=== PATIENT | female | born 1940 | race Caucasian/White ===

== ENCOUNTER → 2018-04-26 08:09 | Outpatient (CLI) | payer MEDICARE, OTHER, SELFPAY ==
[2018-04-26 10:03] LABS: Basophils Percent Auto 5.1 % (0-2); Hematocrit 39.3 % (36-46); Hemoglobin 13.6 g/dL (12.0-16.0); Mean Corpuscular HGB Conc 34.7 % (30-36); Mean Corpuscular Hemoglobin 34.8 PG (26-34); Mean Corpuscular Volume 100.5 fL (80-100); Monocytes Percent Auto 5.4 % (3-14); Neutrophils Absolute Auto 1700 /uL (3000-5900); Neutrophils Percent Auto 38.5 % (50-75); Platelet Count 251 X10^3/uL (150-400); Red Blood Cell Count 3.91 X10^6/uL (4.0-5.2); White Blood Cell Count 4.3 X10^3/uL (4.5-11.0)
[2018-04-26 10:11] LABS: Add Manual Diff / Slide Review SLIDE REVIEW
[2018-04-26 10:21] LABS: Alanine Aminotransferase 29 IU/L (9-52); Albumin 4.4 g/dL (3.5-5.0); Albumin Globulin Ratio 1.6 (1.0-2.8); Alkaline Phosphatase 52 U/L (38-126); Aspartate Aminotransferase 31 IU/L (14-36); BUN Creatinine Ratio 19.2 (6-22); Bilirubin Total 1.5 mg/dL (0.2-1.3); Blood Urea Nitrogen 23 mg/dL (7-17); Calcium 9.9 mg/dL (8.4-10.2); Carbon Dioxide 32 mmol/L (22-32); Chloride 101 mmol/L (98-107); Cholesterol 207 mg/dL (140-199); Estimated Glomerular Filt Rate 43.7 mL/min (>60); Globulin 2.7 g/dL (1.7-4.1); Glucose 113 mg/dL (80-110); HDL Cholesterol 53 mg/dL (40-60); HEMOLYSIS < 15 (0-50); LDL Cholesterol Calculated 128 mg/dL (<100); Potassium 4.5 mmol/L (3.4-5.1); Sodium 142 mmol/L (137-145); Total Protein 7.1 g/dL (6.3-8.2); Triglycerides 129 mg/dL (35-150)
[2018-04-26 10:38] LABS: Free T4, Direct Thyroxine 1.66 ng/dL (0.78-2.19)
[2018-04-26 10:52] LABS: Thyroid Stimulating Hormone 1.44 uIU/mL (0.47-4.68)
== END ==
PROVIDERS: PCP Family Medicine; Visit Provider Family Medicine
DX: I10 Essential (primary) hypertension (principal); E03.9 Hypothyroidism, unspecified; E78.5 Hyperlipidemia, unspecified
CPT/HCPCS: 36415; 80053; 80061; 84439; 84443; 84481; 85025

== ENCOUNTER → 2018-05-02 10:41 | Outpatient (CLI) | payer MEDICARE, OTHER, SELFPAY ==
[2018-05-02 11:46] LABS: Alanine Aminotransferase 37 IU/L (9-52); Albumin 4.5 g/dL (3.5-5.0); Albumin Globulin Ratio 1.6 (1.0-2.8); Alkaline Phosphatase 55 U/L (38-126); Aspartate Aminotransferase 39 IU/L (14-36); Bilirubin Total 1.5 mg/dL (0.2-1.3); Blood Urea Nitrogen 18 mg/dL (7-17); Carbon Dioxide 35 mmol/L (22-32); Chloride 101 mmol/L (98-107); Cholesterol 198 mg/dL (140-199); Estimated Glomerular Filt Rate 53.9 mL/min (>60); Globulin 2.9 g/dL (1.7-4.1); Glucose 98 mg/dL (80-110); HDL Cholesterol 52 mg/dL (40-60); HEMOLYSIS < 15 (0-50); LDL Cholesterol Calculated 105 mg/dL (<100); Potassium 4.3 mmol/L (3.4-5.1); Sodium 142 mmol/L (137-145); Total Protein 7.4 g/dL (6.3-8.2); Triglycerides 207 mg/dL (35-150)
[2018-05-02 12:51] LABS: Folate 11.5 ng/mL (2.76-20.0); Vitamin B12 703 pg/mL (239-931)
[2018-05-02 14:44] LABS: Hematocrit 38.4 % (36-46); Hemoglobin 13.4 g/dL (12.0-16.0); Mean Corpuscular HGB Conc 34.9 % (30-36); Mean Corpuscular Hemoglobin 34.9 PG (26-34); Mean Corpuscular Volume 99.9 fL (80-100); Platelet Count 259 X10^3/uL (150-400); Red Blood Cell Count 3.84 X10^6/uL (4.0-5.2); Red Cell Distribution Width 14.7 % (11.6-14.8); White Blood Cell Count 5.1 X10^3/uL (4.5-11.0)
[2018-05-02 14:46] LABS: Add Manual Diff / Slide Review YES
[2018-05-02 15:17] LABS: Thyroid Stimulating Hormone 1.31 uIU/mL (0.47-4.68)
[2018-05-02 15:22] LABS: Neutrophils Absolute Manual 2193 /uL (3000-5900); RBC Morphology Normal Morphology; Total Cells Counted 100
== END ==
PROVIDERS: Family Provider Family Medicine; PCP Family Medicine; Visit Provider Family Medicine
DX: I10 Essential (primary) hypertension (principal); N28.9 Disorder of kidney and ureter, unspecified; E03.9 Hypothyroidism, unspecified; R53.83 Other fatigue
CPT/HCPCS: 36415; 80053; 80061; 82607; 82746; 84443; 85025

== ENCOUNTER → 2019-02-07 08:00 | Outpatient (CLI) | payer MEDICARE, OTHER, SELFPAY ==
[2019-02-07 09:15] LABS: Add Manual Diff / Slide Review NO; Basophils Absolute Auto 200 /uL (0-100); Basophils Percent Auto 4.4 % (0-2); Eosinophils Absolute Auto 100 /uL (0-450); Eosinophils Percent Auto 2.7 % (2-4); Hematocrit 39.5 % (36-46); Hemoglobin 13.5 g/dL (12.0-16.0); Lymphocytes Absolute Auto 1500 /uL (1100-4500); Lymphocytes Percent Auto 33.8 % (25-40); Mean Corpuscular HGB Conc 34.1 % (30-36); Mean Corpuscular Hemoglobin 33.3 PG (26-34); Mean Corpuscular Volume 97.5 fL (80-100); Monocytes Absolute Auto 300 /uL (0-900); Monocytes Percent Auto 5.9 % (3-14); Neutrophils Absolute Auto 2300 /uL (1500-7000); Neutrophils Percent Auto 53.2 % (50-75); Platelet Count 265 X10^3/uL (150-400); Red Blood Cell Count 4.05 X10^6/uL (4.0-5.2); Red Cell Distribution Width 14.9 % (11.6-14.8); White Blood Cell Count 4.4 X10^3/uL (4.5-11.0)
[2019-02-07 09:51] LABS: Alanine Aminotransferase 23 IU/L (9-52); Albumin 4.5 g/dL (3.5-5.0); Albumin Globulin Ratio 1.5 (1.0-2.8); Alkaline Phosphatase 69 U/L (38-126); Aspartate Aminotransferase 27 IU/L (14-36); Bilirubin Total 1.3 mg/dL (0.2-1.3); Blood Urea Nitrogen 22 mg/dL (7-17); Calcium 10.1 mg/dL (8.4-10.2); Carbon Dioxide 31 mmol/L (22-32); Chloride 101 mmol/L (98-107); Cholesterol 228 mg/dL (140-199); Estimated Glomerular Filt Rate 53.8 mL/min (>60); Glucose 126 mg/dL (80-110); HDL Cholesterol 53 mg/dL (40-60); HEMOLYSIS < 15 (0-50); LDL Cholesterol Calculated 143 mg/dL (<100); Potassium 4.2 mmol/L (3.4-5.1); Sodium 141 mmol/L (137-145); Total Protein 7.5 g/dL (6.3-8.2); Triglycerides 159 mg/dL (35-150)
[2019-02-07 10:25] LABS: Thyroid Stimulating Hormone 1.36 uIU/mL (0.47-4.68)
== END ==
PROVIDERS: PCP Family Medicine; Visit Provider Family Medicine
DX: E03.9 Hypothyroidism, unspecified (principal); I10 Essential (primary) hypertension; N28.9 Disorder of kidney and ureter, unspecified; R53.83 Other fatigue; Z51.81 Encounter for therapeutic drug level monitoring
CPT/HCPCS: 36415; 80053; 80061; 84443; 85025

== ENCOUNTER → 2019-06-15 09:07 | Outpatient (CLI) | payer MEDICARE, OTHER, SELFPAY ==
[2019-06-15 09:55] LABS: Alanine Aminotransferase 22 IU/L (9-52); Albumin 4.3 g/dL (3.5-5.0); Albumin Globulin Ratio 1.4 (1.0-2.8); Alkaline Phosphatase 84 U/L (38-126); Aspartate Aminotransferase 29 IU/L (14-36); BUN Creatinine Ratio 21.1 (6-22); Bilirubin Total 1.1 mg/dL (0.2-1.3); Blood Urea Nitrogen 19 mg/dL (7-17); Calcium 10.5 mg/dL (8.4-10.2); Carbon Dioxide 32 mmol/L (22-32); Chloride 100 mmol/L (98-107); Cholesterol 179 mg/dL (140-199); Estimated Glomerular Filt Rate > 60.0 mL/min (>60); Glucose 117 mg/dL (80-110); HDL Cholesterol 47 mg/dL (40-60); HEMOLYSIS < 15 (0-50); LDL Cholesterol Calculated 107 mg/dL (<100); Potassium 4.3 mmol/L (3.4-5.1); Sodium 141 mmol/L (137-145); Total Protein 7.3 g/dL (6.3-8.2); Triglycerides 126 mg/dL (35-150)
[2019-06-15 10:28] LABS: Free T3, Triiodothyronine Free 2.69 pg/mL (2.77-5.27)
[2019-06-15 10:41] LABS: Thyroid Stimulating Hormone 1.52 uIU/mL (0.47-4.68)
== END ==
PROVIDERS: PCP Family Medicine; Visit Provider Family Medicine
DX: E03.9 Hypothyroidism, unspecified (principal); E78.5 Hyperlipidemia, unspecified; R73.9 Hyperglycemia, unspecified
CPT/HCPCS: 36415; 80053; 80061; 84439; 84443; 84481

== ENCOUNTER → 2019-08-10 07:39 | Outpatient (CLI) | payer MEDICARE, OTHER, SELFPAY ==
--- NOTE | 2019-08-10 07:40 | DI.MG.S_ITS ---
BILATERAL DIGITAL SCREENING MAMMOGRAM 3D/2D WITH CAD: 08/10/2019 CLINICAL: Routine screening. Family history of breast cancer. Comparison is made to exams dated: 04/19/2014 mammogram, 03/24/2013 mammogram, and 01/18/2012 mammogram - [facility]. There are scattered fibroglandular elements in both breasts. Current study was also evaluated with a Computer Aided Detection (CAD) system. There are benign calcifications in both breasts. No significant masses, calcifications, or other findings are seen in either breast. There has been no significant interval change. IMPRESSION: There is no mammographic evidence of malignancy. A 1 year screening mammogram is recommended. This exam was interpreted at Station ID: [id number]. NOTE: For mammograms, a report in lay terms will be sent to the patient. Approximately 15% of breast malignancies will not be visualized mammographically. In the management of a palpable breast mass, a negative mammogram must not discourage biopsy of a clinically suspicious lesion. Electronically Signed By: Fermin bauer/ervin:08/10/2019 09:41:11 letter sent: Normal Exam ACR BI-RADS Category 2: Benign Finding(s) 3342F
== END ==
PROVIDERS: PCP Family Medicine; Visit Provider Family Medicine
DX: Z12.31 Encounter for screening mammogram for malignant neoplasm of breast (principal); Z80.3 Family history of malignant neoplasm of breast
CPT/HCPCS: 77063; 77067

== ENCOUNTER → 2019-12-04 07:49 | Outpatient (CLI) | payer MEDICARE, OTHER, SELFPAY ==
[2019-12-04 08:25] LABS: Hemoglobin A1C% w Est Avg Glu 5.6 % (4.0-6.0)
[2019-12-04 08:35] LABS: Alanine Aminotransferase 24 IU/L (<35); Albumin 4.6 g/dL (3.5-5.0); Albumin Globulin Ratio 1.5 (1.0-2.8); Alkaline Phosphatase 56 U/L (38-126); Aspartate Aminotransferase 32 IU/L (14-36); Blood Urea Nitrogen 18 mg/dL (7-17); Carbon Dioxide 33 mmol/L (22-32); Chloride 103 mmol/L (98-107); Cholesterol 203 mg/dL (140-199); Estimated Glomerular Filt Rate > 60.0 mL/min (>60); Glucose 125 mg/dL (80-110); HDL Cholesterol 60 mg/dL (40-60); HEMOLYSIS < 15 (0-50); LDL Cholesterol Calculated 115 mg/dL (<100); Potassium 4.2 mmol/L (3.4-5.1); Sodium 144 mmol/L (137-145); Total Protein 7.6 g/dL (6.3-8.2); Triglycerides 142 mg/dL (35-150)
[2019-12-04 09:01] LABS: Free T3, Triiodothyronine Free 2.51 pg/mL (2.77-5.27); Free T4, Direct Thyroxine 1.52 ng/dL (0.78-2.19)
[2019-12-04 09:15] LABS: Thyroid Stimulating Hormone 2.45 uIU/mL (0.47-4.68)
== END ==
PROVIDERS: PCP Nurse Practitioner; Referring Provider Family Medicine; Visit Provider Family Medicine
DX: R73.9 Hyperglycemia, unspecified (principal); E03.9 Hypothyroidism, unspecified; G25.0 Essential tremor; I10 Essential (primary) hypertension; E78.5 Hyperlipidemia, unspecified
CPT/HCPCS: 36415; 80053; 80061; 83036; 84439; 84443; 84481

== ENCOUNTER → 2020-04-09 09:48 | Outpatient (CLI) | payer MEDICARE, OTHER, SELFPAY ==
[2020-04-10 14:36] LABS: Fecal Immunochemical Test Negative (Negative)
== END ==
PROVIDERS: PCP Nurse Practitioner; Referring Provider Nurse Practitioner; Visit Provider Nurse Practitioner
DX: Z12.11 Encounter for screening for malignant neoplasm of colon (principal)
CPT/HCPCS: 82274

== ENCOUNTER → 2020-05-20 08:26 | Outpatient (CLI) | payer MEDICARE, OTHER, SELFPAY ==
[2020-05-20 09:30] LABS: Cholesterol 171 mg/dL (140-199); HDL Cholesterol 50 mg/dL (40-60); LDL Cholesterol Calculated 94 mg/dL (<100); Triglycerides 135 mg/dL (35-150)
== END ==
PROVIDERS: PCP Nurse Practitioner; Referring Provider Nurse Practitioner; Visit Provider Nurse Practitioner
DX: E78.5 Hyperlipidemia, unspecified (principal); I10 Essential (primary) hypertension
CPT/HCPCS: 36415; 80061

== ENCOUNTER → 2020-08-12 10:26 | Outpatient (CLI) | payer MEDICARE, OTHER, SELFPAY ==
--- NOTE | 2020-08-12 | DI.MG.S_ITS ---
BILATERAL DIGITAL SCREENING MAMMOGRAM 3D/2D WITH CAD: 08/12/2020 CLINICAL: Routine screening. Family history of breast cancer. Comparison is made to exams dated: 08/10/2019 mammogram and 04/19/2014 mammogram - [facility]. There are scattered fibroglandular elements in both breasts. Current study was also evaluated with a Computer Aided Detection (CAD) system. There are benign calcifications in both breasts. No significant masses, calcifications, or other findings are seen in either breast. There has been no significant interval change. IMPRESSION: BENIGN There is no mammographic evidence of malignancy. A 1 year screening mammogram is recommended. This exam was interpreted at Station ID: [id number]. NOTE: For mammograms, a report in lay terms will be sent to the patient. Approximately 15% of breast malignancies will not be visualized mammographically. In the management of a palpable breast mass, a negative mammogram must not discourage biopsy of a clinically suspicious lesion. Electronically Signed By: Milton al/ervin:08/12/2020 11:26:52 letter sent: Normal Exam ACR BI-RADS Category 2: Benign Finding(s) 3342F
== END ==
PROVIDERS: PCP Nurse Practitioner; Referring Provider Nurse Practitioner; Visit Provider Nurse Practitioner
DX: Z12.31 Encounter for screening mammogram for malignant neoplasm of breast (principal); Z80.3 Family history of malignant neoplasm of breast
CPT/HCPCS: 77063; 77067

== ENCOUNTER → 2020-12-25 08:58 | Outpatient (CLI) | payer MEDICARE, OTHER, SELFPAY ==
[2020-12-25 10:29] LABS: Alanine Aminotransferase 21 IU/L (<35); Albumin 4.3 g/dL (3.5-5.0); Albumin Globulin Ratio 1.7 (1.0-2.8); Alkaline Phosphatase 67 U/L (38-126); Aspartate Aminotransferase 28 IU/L (14-36); BUN Creatinine Ratio 19.4 (6-22); Blood Urea Nitrogen 18 mg/dL (7-17); Calcium 10.1 mg/dL (8.4-10.2); Carbon Dioxide 33 mmol/L (22-32); Chloride 100 mmol/L (98-107); Estimated Glomerular Filt Rate 58.3 mL/min (>60); Globulin 2.5 g/dL (1.7-4.1); Glucose 129 mg/dL (80-110); HEMOLYSIS < 15 (0-50); Potassium 3.9 mmol/L (3.4-5.1); Sodium 140 mmol/L (137-145); Total Protein 6.8 g/dL (6.3-8.2)
[2020-12-25 10:47] LABS: Creatinine Urine Random 96.1 mg/dL
[2020-12-25 10:51] LABS: Microalbumi Creatinin Ratio Ur 32.2 ug/mg CR (<30); Microalbumin Urine Random 3.1 mg/dL (0-1.6)
[2020-12-25 10:55] LABS: Thyroid Stimulating Hormone 0.856 uIU/mL (0.47-4.68)
== END ==
PROVIDERS: PCP Nurse Practitioner; Referring Provider Nurse Practitioner; Visit Provider Nurse Practitioner
DX: E03.9 Hypothyroidism, unspecified (principal); I10 Essential (primary) hypertension; R73.9 Hyperglycemia, unspecified
CPT/HCPCS: 36415; 80053; 82043; 82570; 84443

== ENCOUNTER 2021-01-15 14:00 | Outpatient (RCR) | payer MEDICARE, OTHER, SELFPAY ==
--- NOTE | 2021-01-15 15:43 | OT.OP.EVAL ---
Visit Care Team Role Provider Type YENNY Faith Attending Provider Advanced International Trade Compliance Manager Primary Care Provider Referring Provider Specialty: Family Practice Address: [address] [place] [address], [address] Email: [email or web address] Occupational Therapy Initial Evaluation OT Outpatient Adult Evaluation Start: 01/15/21 15:23 Freq: Status: Active Protocol: Document 01/15/21 15:24 AMS (Rec: 01/15/21 15:42 AMS [id number]) General Information Visit Start Time 14:30 Visit Stop Time 15:00 Total Visit Minutes 30 Visit Number 10/13 Plan of Care Dates 01/15/21-01/22/21 Insurance Information Medicare Treatment Setting Outpatient Care Note Type Initial Evaluation Referring Physician Tisha Garces MD Reason for Referral tremors Assessment/Plan Treatment Assessment Patient is a 81 year-old right hand dominant female referred to outpatient OT services by primary care physician, Tisha Garces MD, secondary to benign essential tremors. PMH: significant for arthritis ( including arthritis of the left hand); back pain; blood pressure; dizziness; headaches ; shingles; sugery; thyroid disorder; vision problems. Patient reported desire to pursue alternative to medication secondary to side effects; she also indicated that her doctor is considering referring her to a neurologist. Patient reported the presence of tremors for some time in her life and that she has switched to left handedness with certain activities, e.g., application of make-up, d/t tremor severity R > L. Patient stated that L UE tremors have been increasing and subsequently making self-feeding and meal preparation more difficult. Ekaterina reported no significant changes with wearing braces. Education was completed re: proximal stabilization to support motor planning/self- feeding; practiced in treatment session and patient identified difference w/ utilizing strategy R and L. Trialed use of wrist weights with no observable change in abilities; recommended considering use of weighted gloves and/or weighted silverware to support abilities. Discussed potential use of plates/bowls with lips to support transferring of food from plated surface to utensil. Basic education was completed in re: energy conservation as well. Based on feedback from Ekaterina, recommend d/c from outpatient OT services at this time. Contact information was provided so that Ekaterina could contact this therapist if questions arise in near future . Patient Recommendations Discharge from Occupational Therapy
== END 2021-01-16 13:45 ==
LOC: OT 14:00
PROVIDERS: PCP Nurse Practitioner; Referring Provider Nurse Practitioner; Visit Provider Nurse Practitioner
DX: G25.0 Essential tremor (principal)
CPT/HCPCS: 97165

== ENCOUNTER → 2021-08-14 09:43 | Outpatient (CLI) | payer MEDICARE, OTHER, SELFPAY ==
--- NOTE | 2021-08-14 09:44 | DI.MG.S_ITS ---
BILATERAL DIGITAL SCREENING MAMMOGRAM 3D/2D WITH CAD: 08/14/2021 CLINICAL: Routine screening. Family history of breast cancer. Comparison is made to exams dated: 08/12/2020 mammogram, 08/10/2019 mammogram, and 04/19/2014 mammogram - [facility]. There are scattered fibroglandular elements in both breasts. Current study was also evaluated with a Computer Aided Detection (CAD) system. There are benign calcifications in both breasts. No significant masses, calcifications, or other findings are seen in either breast. There has been no significant interval change. IMPRESSION: BENIGN There is no mammographic evidence of malignancy. A 1 year screening mammogram is recommended. This exam was interpreted at Station ID: [id number]. NOTE: For mammograms, a report in lay terms will be sent to the patient. Approximately 15% of breast malignancies will not be visualized mammographically. In the management of a palpable breast mass, a negative mammogram must not discourage biopsy of a clinically suspicious lesion. Electronically Signed By: Jason Ring M.D., jr/ervin:08/14/2021 15:31:22 letter sent: Normal Exam ACR BI-RADS Category 2: Benign Finding(s) 3342F
== END ==
PROVIDERS: PCP Nurse Practitioner; Referring Provider Nurse Practitioner; Visit Provider Nurse Practitioner
DX: Z12.31 Encounter for screening mammogram for malignant neoplasm of breast (principal); Z80.3 Family history of malignant neoplasm of breast
CPT/HCPCS: 77063; 77067

== ENCOUNTER → 2022-04-07 08:06 | Outpatient (CLI) | payer MEDICARE, OTHER, SELFPAY ==
[2022-04-07 09:52] LABS: Alanine Aminotransferase 31 IU/L (<35); Albumin 4.6 g/dL (3.5-5.0); Albumin Globulin Ratio 1.9 (1.0-2.8); Alkaline Phosphatase 68 U/L (38-126); Aspartate Aminotransferase 38 IU/L (14-36); BUN Creatinine Ratio 21.8 (6-22); Bilirubin Total 1.4 mg/dL (0.2-1.3); Blood Urea Nitrogen 19 mg/dL (7-17); Calcium 9.8 mg/dL (8.4-10.2); Carbon Dioxide 31 mmol/L (22-32); Chloride 100 mmol/L (98-107); Cholesterol 177 mg/dL (140-199); Estimated Glomerular Filt Rate > 60 mL/min (>60); Globulin 2.4 g/dL (1.7-4.1); Glucose 137 mg/dL (80-110); HDL Cholesterol 54 mg/dL (40-60); HEMOLYSIS < 15 (0-50); LDL Cholesterol Calculated 92 mg/dL (<100); Potassium 4.4 mmol/L (3.4-5.1); Sodium 139 mmol/L (137-145); Triglycerides 153 mg/dL (35-150)
[2022-04-07 10:01] LABS: Microalbumi Creatinin Ratio Ur 43.6 ug/mg CR (<30); Microalbumin Urine Random 3.1 mg/dL (0-1.6)
[2022-04-07 10:25] LABS: Thyroid Stimulating Hormone 0.441 uIU/mL (0.47-4.68)
== END ==
PROVIDERS: PCP Nurse Practitioner; Referring Provider Nurse Practitioner; Visit Provider Nurse Practitioner
DX: E03.9 Hypothyroidism, unspecified (principal); E78.2 Mixed hyperlipidemia; I10 Essential (primary) hypertension; R73.9 Hyperglycemia, unspecified; Z79.899 Other long term (current) drug therapy
CPT/HCPCS: 36415; 80053; 80061; 82043; 82570; 84443

== ENCOUNTER → 2022-07-11 09:00 | Outpatient (CLI) | payer MEDICARE, OTHER, SELFPAY ==
[2022-07-11 10:15] LABS: Alanine Aminotransferase 25 IU/L (<35); Albumin 4.3 g/dL (3.5-5.0); Albumin Globulin Ratio 1.5 (1.0-2.8); Alkaline Phosphatase 67 U/L (38-126); Aspartate Aminotransferase 32 IU/L (14-36); BUN Creatinine Ratio 17.9 (6-22); Bilirubin Total 1.3 mg/dL (0.2-1.3); Blood Urea Nitrogen 17 mg/dL (7-17); Calcium 9.8 mg/dL (8.4-10.2); Carbon Dioxide 31 mmol/L (22-32); Chloride 99 mmol/L (98-107); Estimated Glomerular Filt Rate > 60 mL/min (>60); Globulin 2.9 g/dL (1.7-4.1); Glucose 147 mg/dL (80-110); HEMOLYSIS < 15 (0-50); Potassium 3.7 mmol/L (3.4-5.1); Sodium 142 mmol/L (137-145); Total Protein 7.2 g/dL (6.3-8.2)
[2022-07-11 10:47] LABS: Thyroid Stimulating Hormone 4.99 uIU/mL (0.47-4.68)
== END ==
PROVIDERS: PCP Nurse Practitioner; Referring Provider Nurse Practitioner; Visit Provider Nurse Practitioner
DX: R73.9 Hyperglycemia, unspecified (principal); I10 Essential (primary) hypertension; R79.9 Abnormal finding of blood chemistry, unspecified; E03.9 Hypothyroidism, unspecified; R79.89 Other specified abnormal findings of blood chemistry
CPT/HCPCS: 36415; 80053; 83036; 84443

== ENCOUNTER → 2022-08-17 12:11 | Outpatient (CLI) | payer MEDICARE, OTHER, SELFPAY ==
--- NOTE | 2022-08-17 | DI.MG.S_ITS ---
BILATERAL DIGITAL SCREENING MAMMOGRAM 3D/2D WITH CAD: 08/17/2022 CLINICAL: Routine screening. Family history of breast cancer. Comparison is made to exams dated: 08/14/2021 mammogram, 08/12/2020 mammogram, 08/10/2019 mammogram, and 04/19/2014 mammogram - [facility]. There are scattered areas of fibroglandular density in both breasts (category b / 25%-50% glandular tissue). Current study was also evaluated with a Computer Aided Detection (CAD) system. There are benign calcifications in both breasts. There also are benign post operative findings in the left breast. No significant masses, calcifications, or other findings are seen in either breast. There has been no significant interval change. IMPRESSION: BENIGN There is no mammographic evidence of malignancy. A 1 year screening mammogram is recommended. Based on the Tyrer Cuzick model (a risk assessment model) the patient's lifetime risk is 1.1% and her 10 year risk is 0.0%. According to the ACR, ACS, and NCCN guidelines, an annual breast MRI exam along with mammogram is recommended if the patient's lifetime risk is 20% or greater. This exam was interpreted at Station ID: [id number]. NOTE: For mammograms, a report in lay terms will be sent to the patient. Approximately 15% of breast malignancies will not be visualized mammographically. In the management of a palpable breast mass, a negative mammogram must not discourage biopsy of a clinically suspicious lesion. Electronically Signed By: Michele maynard/ervin:08/17/2022 16:49:11 letter sent: Normal Exam ACR BI-RADS Category 2: Benign Finding(s) 3342F
== END ==
PROVIDERS: PCP Nurse Practitioner; Referring Provider Nurse Practitioner; Visit Provider Nurse Practitioner
DX: Z12.31 Encounter for screening mammogram for malignant neoplasm of breast (principal); Z80.3 Family history of malignant neoplasm of breast
CPT/HCPCS: 77063; 77067

== ENCOUNTER → 2023-01-07 06:31 | Outpatient (CLI) | payer MEDICARE, OTHER, SELFPAY ==
[2023-01-07 10:23] LABS: Alanine Aminotransferase 21 IU/L (<35); Albumin 3.9 g/dL (3.5-5.0); Albumin Globulin Ratio 1.6 (1.0-2.8); Alkaline Phosphatase 62 U/L (38-126); Aspartate Aminotransferase 25 IU/L (14-36); BUN Creatinine Ratio 21.8 (6-22); Bilirubin Total 1.7 mg/dL (0.2-1.3); Blood Urea Nitrogen 24 mg/dL (7-17); Calcium 9.3 mg/dL (8.4-10.2); Carbon Dioxide 31 mmol/L (22-32); Chloride 96 mmol/L (98-107); Estimated Glomerular Filt Rate 50 mL/min (>60); Globulin 2.4 g/dL (1.7-4.1); Glucose 139 mg/dL (80-110); HEMOLYSIS < 15 (0-50); Potassium 3.6 mmol/L (3.4-5.1); Sodium 137 mmol/L (137-145); Total Protein 6.3 g/dL (6.3-8.2)
[2023-01-08 06:04] LABS: x Labcorp Estim. Avg Glu (eAG) 128 mg/dL (.); x Labcorp Hemoglobin A1c 6.1 % (4.8-5.6)
== END ==
PROVIDERS: PCP Nurse Practitioner; Referring Provider Nurse Practitioner; Visit Provider Nurse Practitioner
DX: R73.03 Prediabetes; I10 Essential (primary) hypertension; Z79.899 Other long term (current) drug therapy
CPT/HCPCS: 36415; 80053; 83036

== ENCOUNTER → 2023-01-22 10:29 | Outpatient (CLI) | payer MEDICARE, OTHER, SELFPAY ==
[2023-01-22 12:23] LABS: Free T3, Triiodothyronine Free 3.06 pg/mL (2.77-5.27); Free T4, Direct Thyroxine 1.68 ng/dL (0.78-2.19)
[2023-01-22 12:35] LABS: Thyroid Stimulating Hormone 1.93 uIU/mL (0.47-4.68)
== END ==
PROVIDERS: PCP Nurse Practitioner; Referring Provider Nurse Practitioner; Visit Provider Nurse Practitioner
DX: E03.9 Hypothyroidism, unspecified (principal)
CPT/HCPCS: 36415; 84439; 84443; 84481

== ENCOUNTER → 2023-01-25 15:04 | Outpatient (CLI) | payer MEDICARE, OTHER, SELFPAY ==
[2023-01-25 15:33] LABS: Add Manual Diff / Slide Review NO; Basophils Absolute Auto 200 /uL (0-100); Eosinophils Absolute Auto 200 /uL (0-450); Eosinophils Percent Auto 3.1 % (2-4); Hematocrit 37.2 % (36-46); Hemoglobin 12.8 g/dL (12.0-16.0); Lymphocytes Absolute Auto 1700 /uL (1100-4500); Lymphocytes Percent Auto 32.2 % (25-40); Mean Corpuscular HGB Conc 34.5 % (30-36); Mean Corpuscular Hemoglobin 33.8 PG (26-34); Mean Corpuscular Volume 98.1 fL (80-100); Monocytes Absolute Auto 200 /uL (0-900); Monocytes Percent Auto 4.6 % (3-14); Neutrophils Absolute Auto 2900 /uL (1500-7000); Neutrophils Percent Auto 56.1 % (50-75); Platelet Count 261 X10^3/uL (150-400); Red Blood Cell Count 3.79 X10^6/uL (4.0-5.2); Red Cell Distribution Width 15.7 % (11.6-14.8); White Blood Cell Count 5.2 X10^3/uL (4.5-11.0)
[2023-01-25 15:34] LABS: Alanine Aminotransferase 101 IU/L (<35); Albumin 4.3 g/dL (3.5-5.0); Albumin Globulin Ratio 1.5 (1.0-2.8); Alkaline Phosphatase 100 U/L (38-126); Aspartate Aminotransferase 48 IU/L (14-36); BUN Creatinine Ratio 14.5 (6-22); Bilirubin Total 1.6 mg/dL (0.2-1.3); Blood Urea Nitrogen 12 mg/dL (7-17); Calcium 9.7 mg/dL (8.4-10.2); Carbon Dioxide 28 mmol/L (22-32); Chloride 106 mmol/L (98-107); Estimated Glomerular Filt Rate > 60 mL/min (>60); Globulin 2.8 g/dL (1.7-4.1); Glucose 94 mg/dL (80-110); HEMOLYSIS < 15 (0-50); Potassium 4.5 mmol/L (3.4-5.1); Sodium 140 mmol/L (137-145); Total Protein 7.1 g/dL (6.3-8.2)
[2023-01-25 15:50] LABS: Free T4, Direct Thyroxine 1.79 ng/dL (0.78-2.19)
[2023-01-25 16:04] LABS: Thyroid Stimulating Hormone 2.53 uIU/mL (0.47-4.68)
== END ==
PROVIDERS: PCP Nurse Practitioner; Referring Provider Family Medicine; Visit Provider Family Medicine
DX: I48.91 Unspecified atrial fibrillation (principal); N18.9 Chronic kidney disease, unspecified
CPT/HCPCS: 36415; 80053; 84439; 84443; 85025

== ENCOUNTER → 2023-02-25 10:51 | Outpatient (CLI) | payer MEDICARE, OTHER, SELFPAY ==
[2023-02-25 11:55] LABS: Alanine Aminotransferase 31 IU/L (<35); Albumin 4.4 g/dL (3.5-5.0); Albumin Globulin Ratio 1.8 (1.0-2.8); Alkaline Phosphatase 69 U/L (38-126); Aspartate Aminotransferase 27 IU/L (14-36); BUN Creatinine Ratio 8.8 (6-22); Bilirubin Total 1.7 mg/dL (0.2-1.3); Blood Urea Nitrogen 10 mg/dL (7-17); Calcium 9.8 mg/dL (8.4-10.2); Carbon Dioxide 31 mmol/L (22-32); Chloride 98 mmol/L (98-107); Estimated Glomerular Filt Rate 49 mL/min (>60); Globulin 2.4 g/dL (1.7-4.1); Glucose 129 mg/dL (80-110); HEMOLYSIS < 15 (0-50); Potassium 4.3 mmol/L (3.4-5.1); Sodium 136 mmol/L (137-145); Total Protein 6.8 g/dL (6.3-8.2)
[2023-02-25 12:24] LABS: Thyroid Stimulating Hormone 2.32 uIU/mL (0.47-4.68)
== END ==
PROVIDERS: PCP Nurse Practitioner; Referring Provider Internal Medicine Cardiovascular Disease; Visit Provider Internal Medicine Cardiovascular Disease
DX: I48.19 Other persistent atrial fibrillation (principal)
CPT/HCPCS: 36415; 80053; 84443

== ENCOUNTER → 2023-03-05 09:53 | Outpatient (CLI) | payer MEDICARE, OTHER, SELFPAY ==
[2023-03-05 10:48] LABS: BUN Creatinine Ratio 12.5 (6-22); Blood Urea Nitrogen 13 mg/dL (7-17); Calcium 9.8 mg/dL (8.4-10.2); Carbon Dioxide 30 mmol/L (22-32); Chloride 98 mmol/L (98-107); Estimated Glomerular Filt Rate 54 mL/min (>60); Glucose 138 mg/dL (80-110); HEMOLYSIS < 15 (0-50); Potassium 4.6 mmol/L (3.4-5.1); Sodium 136 mmol/L (137-145)
== END ==
PROVIDERS: PCP Nurse Practitioner; Referring Provider Internal Medicine Cardiovascular Disease; Visit Provider Internal Medicine Cardiovascular Disease
DX: I50.20 Unspecified systolic (congestive) heart failure (principal)
CPT/HCPCS: 36415; 80048

== ENCOUNTER → 2023-04-22 09:04 | Outpatient (CLI) | payer MEDICARE, OTHER, SELFPAY ==
[2023-04-23 09:17] LABS: x Labcorp Estim. Avg Glu (eAG) 123 mg/dL (.); x Labcorp Hemoglobin A1c 5.9 % (4.8-5.6)
== END ==
PROVIDERS: PCP Nurse Practitioner; Referring Provider Nurse Practitioner; Visit Provider Nurse Practitioner
DX: R73.03 Prediabetes (principal)
CPT/HCPCS: 36415; 83036

== ENCOUNTER → 2023-05-07 09:58 | Outpatient (CLI) | payer MEDICARE, OTHER, SELFPAY ==
[2023-05-07 11:19] LABS: BUN Creatinine Ratio 15.8 (6-22); Blood Urea Nitrogen 15 mg/dL (7-17); Calcium 9.7 mg/dL (8.4-10.2); Carbon Dioxide 28 mmol/L (22-32); Chloride 101 mmol/L (98-107); Estimated Glomerular Filt Rate > 60 mL/min (>60); Glucose 108 mg/dL (80-110); HEMOLYSIS < 15 (0-50); Sodium 136 mmol/L (137-145)
== END ==
PROVIDERS: PCP Nurse Practitioner; Referring Provider Internal Medicine Cardiovascular Disease; Visit Provider Internal Medicine Cardiovascular Disease
DX: I50.22 Chronic systolic (congestive) heart failure (principal)
CPT/HCPCS: 36415; 80048

== ENCOUNTER → 2023-05-22 09:50 | Outpatient (CLI) | payer MEDICARE, OTHER, SELFPAY ==
[2023-05-22 13:09] LABS: BUN Creatinine Ratio 12.1 (6-22); Blood Urea Nitrogen 12 mg/dL (7-17); Calcium 9.7 mg/dL (8.4-10.2); Carbon Dioxide 28 mmol/L (22-32); Chloride 98 mmol/L (98-107); Estimated Glomerular Filt Rate 57 mL/min (>60); Glucose 107 mg/dL (80-110); HEMOLYSIS < 15 (0-50); Potassium 4.6 mmol/L (3.4-5.1); Sodium 134 mmol/L (137-145)
== END ==
PROVIDERS: PCP Nurse Practitioner; Referring Provider Internal Medicine Cardiovascular Disease; Visit Provider Internal Medicine Cardiovascular Disease
DX: I10 Essential (primary) hypertension (principal)
CPT/HCPCS: 36415; 80048

== ENCOUNTER → 2023-06-26 09:27 | Outpatient (CLI) | payer MEDICARE, OTHER, SELFPAY ==
[2023-06-26 10:37] LABS: BUN Creatinine Ratio 11.7 (6-22); Blood Urea Nitrogen 12 mg/dL (7-17); Calcium 10.5 mg/dL (8.4-10.2); Carbon Dioxide 27 mmol/L (22-32); Chloride 98 mmol/L (98-107); Estimated Glomerular Filt Rate 55 mL/min (>60); Glucose 127 mg/dL (80-110); HEMOLYSIS < 15 (0-50); Potassium 4.6 mmol/L (3.4-5.1); Sodium 133 mmol/L (137-145)
== END ==
PROVIDERS: PCP Nurse Practitioner; Referring Provider Internal Medicine Cardiovascular Disease; Visit Provider Internal Medicine Cardiovascular Disease
DX: I10 Essential (primary) hypertension (principal)
CPT/HCPCS: 36415; 80048

== ENCOUNTER → 2023-07-03 09:12 | Outpatient (CLI) | payer MEDICARE, OTHER, SELFPAY ==
[2023-07-03 09:48] LABS: Add Manual Diff / Slide Review NO; Basophils Absolute Auto 200 /uL (0-100); Basophils Percent Auto 4.1 % (0-2); Eosinophils Absolute Auto 100 /uL (0-450); Eosinophils Percent Auto 1.8 % (2-4); Hematocrit 39.3 % (36-46); Hemoglobin 13.7 g/dL (12.0-16.0); Lymphocytes Absolute Auto 1400 /uL (1100-4500); Lymphocytes Percent Auto 28.9 % (25-40); Mean Corpuscular HGB Conc 34.8 % (30-36); Mean Corpuscular Volume 97.6 fL (80-100); Monocytes Absolute Auto 200 /uL (0-900); Monocytes Percent Auto 4.4 % (3-14); Neutrophils Absolute Auto 3000 /uL (1500-7000); Neutrophils Percent Auto 60.8 % (50-75); Platelet Count 293 X10^3/uL (150-400); Red Blood Cell Count 4.02 X10^6/uL (4.0-5.2); Red Cell Distribution Width 15.2 % (11.6-14.8); White Blood Cell Count 4.9 X10^3/uL (4.5-11.0)
[2023-07-03 10:36] LABS: BUN Creatinine Ratio 20.5 (6-22); Blood Urea Nitrogen 25 mg/dL (7-17); Calcium 10.3 mg/dL (8.4-10.2); Carbon Dioxide 29 mmol/L (22-32); Chloride 99 mmol/L (98-107); Estimated Glomerular Filt Rate 45 mL/min (>60); Glucose 122 mg/dL (80-110); HEMOLYSIS < 15 (0-50); Potassium 4.7 mmol/L (3.4-5.1); Sodium 136 mmol/L (137-145)
== END ==
PROVIDERS: PCP Nurse Practitioner; Referring Provider Internal Medicine Cardiovascular Disease; Visit Provider Internal Medicine Cardiovascular Disease
DX: I48.19 Other persistent atrial fibrillation (principal)
CPT/HCPCS: 36415; 80048; 85025

== ENCOUNTER → 2023-07-17 09:46 | Outpatient (CLI) | payer MEDICARE, OTHER, SELFPAY ==
[2023-07-17 12:11] LABS: Alanine Aminotransferase 30 IU/L (<35); Albumin 4.5 g/dL (3.5-5.0); Albumin Globulin Ratio 1.7 (1.0-2.8); Alkaline Phosphatase 64 U/L (38-126); Aspartate Aminotransferase 30 IU/L (14-36); BUN Creatinine Ratio 12.5 (6-22); Bilirubin Total 1.8 mg/dL (0.2-1.3); Blood Urea Nitrogen 16 mg/dL (7-17); Calcium 10.5 mg/dL (8.4-10.2); Carbon Dioxide 27 mmol/L (22-32); Chloride 95 mmol/L (98-107); Cholesterol 173 mg/dL (140-199); Estimated Glomerular Filt Rate 42 mL/min (>60); Globulin 2.7 g/dL (1.7-4.1); Glucose 126 mg/dL (80-110); HDL Cholesterol 65 mg/dL (40-60); HEMOLYSIS < 15 (0-50); LDL Cholesterol Calculated 86 mg/dL (<100); Potassium 4.9 mmol/L (3.4-5.1); Sodium 132 mmol/L (137-145); Total Protein 7.2 g/dL (6.3-8.2); Triglycerides 109 mg/dL (35-150)
[2023-07-17 12:14] LABS: Creatinine Urine Random 125.9 mg/dL
[2023-07-17 12:15] LABS: Microalbumi Creatinin Ratio Ur 29.3 ug/mg CR (<30); Microalbumin Urine Random 3.7 mg/dL (0-1.6)
[2023-07-17 15:47] LABS: Hemoglobin A1C% w Est Avg Glu 5.6 % (4.0-6.0)
== END ==
PROVIDERS: PCP Nurse Practitioner; Referring Provider Nurse Practitioner; Visit Provider Nurse Practitioner
DX: R73.03 Prediabetes (principal); N18.9 Chronic kidney disease, unspecified; I48.91 Unspecified atrial fibrillation; G47.00 Insomnia, unspecified; E78.5 Hyperlipidemia, unspecified; I10 Essential (primary) hypertension; E03.9 Hypothyroidism, unspecified
CPT/HCPCS: 36415; 80053; 80061; 82043; 82570; 83036

== ENCOUNTER → 2023-07-29 10:27 | Outpatient (CLI) | payer MEDICARE, OTHER, SELFPAY ==
--- NOTE | 2023-07-29 10:30 | DI.US.S_ITS ---
PROCEDURE: US ABDOMEN COMPLETE INDICATIONS: ELEVATED BILIRUBIN, ABDOMINAL PAIN TECHNIQUE: Real-time scanning was performed of the abdominal and retroperitoneal organs, with image documentation. COMPARISON: None. FINDINGS: Liver: Liver is normal in size and homogeneous in echotexture. Gallbladder: No findings of gallstones or sludge are seen. The gallbladder wall is not thickened, measuring 3 mm or less. No specific pericholecystic fluid is seen. The sonographic Gupta sign is negative. Biliary ducts: Intrahepatic bile ducts are non-dilated. Extrahepatic bile duct caliber measures 2 mm. Normal is 6-7 mm or less in diameter, or 10 mm or less post-cholecystectomy. Pancreas: Visualized portions of the pancreas are sonographically normal. Spleen: Spleen is normal in size and homogeneous in echotexture. Kidneys: Kidneys are normal in size and echotexture. Right kidney measures 9 cm long; left kidney measures 9.7 cm long. No hydronephrosis or nephrolithiasis. No solid masses. A septated right renal cyst is seen that measures up to 2.8 cm. No abnormal vascularity can be seen. Aorta: Visualized aorta is normal in caliber at less than 3 cm. Iliacs: Proximal common iliac arteries are normal in caliber at less than 2.5 cm. IVC: Intrahepatic inferior vena cava is patent. Miscellaneous: No free abdominal fluid. IMPRESSION: No significant abnormality is seen. The gallbladder demonstrates a normal sonographic appearance. No biliary dilatation is seen. A septated right renal cyst is incidentally noted. Dictated by: Jeremy Becerra M.D. on 07/29/2023 at 17:25 Approved by: Jeremy Becerra M.D. on 07/29/2023 at 17:26
[2023-07-29 12:48] LABS: Alanine Aminotransferase 26 IU/L (<35); Albumin 4.7 g/dL (3.5-5.0); Albumin Globulin Ratio 1.6 (1.0-2.8); Alkaline Phosphatase 56 U/L (38-126); Aspartate Aminotransferase 35 IU/L (14-36); BUN Creatinine Ratio 20.8 (6-22); Bilirubin Total 1.9 mg/dL (0.2-1.3); Blood Urea Nitrogen 25 mg/dL (7-17); Calcium 10.3 mg/dL (8.4-10.2); Carbon Dioxide 29 mmol/L (22-32); Chloride 94 mmol/L (98-107); Estimated Glomerular Filt Rate 45 mL/min (>60); Globulin 2.9 g/dL (1.7-4.1); Glucose 112 mg/dL (80-110); HEMOLYSIS < 15 (0-50); Potassium 4.7 mmol/L (3.4-5.1); Sodium 133 mmol/L (137-145); Total Protein 7.6 g/dL (6.3-8.2)
[2023-07-29 13:18] LABS: Thyroid Stimulating Hormone 2.01 uIU/mL (0.47-4.68)
== END ==
PROVIDERS: PCP Nurse Practitioner; Referring Provider Family Medicine; Visit Provider Family Medicine
DX: Z79.899 Other long term (current) drug therapy (principal); R10.32 Left lower quadrant pain; N28.1 Cyst of kidney, acquired
CPT/HCPCS: 36415; 76700; 80053; 84443

== ENCOUNTER → 2023-09-04 09:27 | Outpatient (CLI) | payer MEDICARE, OTHER, SELFPAY ==
[2023-09-04 11:19] LABS: BUN Creatinine Ratio 18.9 (6-22); Blood Urea Nitrogen 20 mg/dL (7-17); Calcium 10.2 mg/dL (8.4-10.2); Carbon Dioxide 29 mmol/L (22-32); Chloride 97 mmol/L (98-107); Estimated Glomerular Filt Rate 53 mL/min (>60); Glucose 98 mg/dL (80-110); HEMOLYSIS 19 (0-50); Potassium 4.8 mmol/L (3.4-5.1); Sodium 133 mmol/L (137-145)
== END ==
PROVIDERS: PCP Nurse Practitioner; Referring Provider Physician Assistant Medical; Visit Provider Physician Assistant Medical
DX: I48.19 Other persistent atrial fibrillation (principal)
CPT/HCPCS: 36415; 80048

== ENCOUNTER → 2023-10-19 11:56 | Outpatient (CLI) | payer MEDICARE, OTHER, SELFPAY ==
--- NOTE | 2023-10-19 11:58 | DI.ECHO.S_ITS ---
[facility] +---------+ : : [address] [address] : : : : [id number] : : : : Phone: [phone]+ Echocardiogram Report + + :Name: CATRACHITA FIGUEROA Study Date: 10/19/2023 Height: 62 in : :[facility] ReadingLocation: Weight: 137 lb : : Gender: Female BSA: 1.6 m2 : :: 1940 Age: 83 yrs BP: 130/55 mmHg: :Reason For Study: ATRIAL FIBRILLATION : :Ordering Physician: : :BLAS GUERRERO Performed By: Danielle Conner : :Referring: BLAS GUERRERO : + + Interpretation Summary The patient was in sinus bradycardia with heart rates between 47-51 bpm during the exam. The left ventricle is normal in size and wall thickness. Left ventricular ejection fraction is estimated to be 55 +/- 5%.On May 13, 2023 LVEF 50A?5% during A-fib and prior to that LVEF 30 to 35%. Compared to the prior exam, the left ventricular function is improved. The right ventricle is normal in size and function. There is mild to moderate mitral regurgitation. Previously mild MR. There is mild tricuspid regurgitation. The right ventricular systolic pressure is estimated to be at least 28 mmHg based on an estimated right atrial pressure of 3 mm Hg. Procedure: Images were not obtained from all of the standard acoustic windows due to the limited scope of the study. The study quality was technically adequate. Comparison is made with the echocardiogram of 05/13/2023. The patient was in sinus bradycardia with heart rates between 47- 51 bpm during the exam. Left Ventricle: The left ventricle is normal in size and wall thickness. There is no thrombus. Left ventricular ejection fraction is estimated to be 55 +/- 5%. Compared to the prior exam, the left ventricular function is improved. There are no focal wall motion abnormalities. Right Ventricle: The right ventricle is normal in size and function. Atria: The left atrium is moderately dilated. There has been no significant change since the previous study. Mitral Valve: The mitral valve leaflets appear borderline thickened, but open well. There is mild mitral annular calcification. There is mild to moderate mitral regurgitation. Tricuspid Valve: The tricuspid valve is normal. There is mild tricuspid regurgitation. The right ventricular systolic pressure is estimated to be at least 28 mmHg based on an estimated right atrial pressure of 3 mm Hg. Pericardium/ Pleura There is an anterior echo-free space consistent with a fat pad. There is no pleural effusion. MMode/2D Measurements & Calculations LVIDd: 4.2 cm LA A2 area: 22.5 cm2 LVIDs: 3.1 cm LA A4 area: 22.8 cm2 FS: 25.4 % LA length (vol): 5.9 cm IVSd: 0.78 cm LA vol: 73.4 ml LVPWd: 0.78 cm LA vol index: 45.1 ml/m2 LV perry. diameter/BSA (cm/m^2): 2.6 LV sys. diameter/BSA (cm/m^2): 1.9 RA long axis: 5.3 cm RVD1 (basal): 3.6 cm RA area: 17.2 cm2 RVD2 (mid): 3.1 cm RA vol: 47.8 ml TAPSE: 2.3 cm RA : 29.4 ml/m2 IVC diam: 1.9 cm Doppler Measurements & Calculations MV E max jus: 84.5 cm/sec TR max jus: 249.6 cm/sec MV A max jus: 77.9 cm/sec TR max P.9 mmHg MV E/A: 1.1 MV dec time: 0.24 sec Reading Physician:11:52 AM
== END ==
LOC: ECHO 11:57
PROVIDERS: PCP Nurse Practitioner; Referring Provider Internal Medicine Cardiovascular Disease; Visit Provider Internal Medicine Cardiovascular Disease
DX: I08.1 Rheumatic disorders of both mitral and tricuspid valves (principal); I48.0 Paroxysmal atrial fibrillation
CPT/HCPCS: 93307

== ENCOUNTER → 2023-10-29 09:38 | Outpatient (CLI) | payer MEDICARE, OTHER, SELFPAY ==
[2023-10-29 11:01] LABS: Alanine Aminotransferase 42 IU/L (<35); Albumin 4.4 g/dL (3.5-5.0); Albumin Globulin Ratio 1.6 (1.0-2.8); Alkaline Phosphatase 64 U/L (38-126); Aspartate Aminotransferase 41 IU/L (14-36); BUN Creatinine Ratio 18.4 (6-22); Bilirubin Total 1.7 mg/dL (0.2-1.3); Blood Urea Nitrogen 19 mg/dL (7-17); Calcium 10.1 mg/dL (8.4-10.2); Carbon Dioxide 30 mmol/L (22-32); Chloride 92 mmol/L (98-107); Estimated Glomerular Filt Rate 55 mL/min (>60); Globulin 2.8 g/dL (1.7-4.1); Glucose 99 mg/dL (80-110); HEMOLYSIS < 15 (0-50); Potassium 4.9 mmol/L (3.4-5.1); Sodium 129 mmol/L (137-145); Total Protein 7.2 g/dL (6.3-8.2)
[2023-10-29 11:17] LABS: Free T4, Direct Thyroxine 2.29 ng/dL (0.78-2.19)
[2023-10-29 11:31] LABS: Thyroid Stimulating Hormone 0.481 uIU/mL (0.47-4.68)
== END ==
PROVIDERS: PCP Nurse Practitioner; Referring Provider Internal Medicine Cardiovascular Disease; Visit Provider Internal Medicine Cardiovascular Disease
DX: I48.0 Paroxysmal atrial fibrillation (principal)
CPT/HCPCS: 36415; 80053; 84439; 84443

== ENCOUNTER → 2023-11-10 11:09 | Outpatient (CLI) | payer MEDICARE, OTHER, SELFPAY ==
[2023-11-10 12:34] LABS: Alanine Aminotransferase 50 IU/L (<35); Albumin 4.6 g/dL (3.5-5.0); Albumin Globulin Ratio 1.6 (1.0-2.8); Alkaline Phosphatase 61 U/L (38-126); Aspartate Aminotransferase 47 IU/L (14-36); BUN Creatinine Ratio 18.8 (6-22); Bilirubin Total 1.7 mg/dL (0.2-1.3); Blood Urea Nitrogen 22 mg/dL (7-17); Calcium 10.3 mg/dL (8.4-10.2); Carbon Dioxide 29 mmol/L (22-32); Chloride 94 mmol/L (98-107); Estimated Glomerular Filt Rate 47 mL/min (>60); Globulin 2.9 g/dL (1.7-4.1); Glucose 96 mg/dL (80-110); HEMOLYSIS < 15 (0-50); Potassium 5.3 mmol/L (3.4-5.1); Sodium 130 mmol/L (137-145); Total Protein 7.5 g/dL (6.3-8.2)
[2023-11-10 12:49] LABS: Free T4, Direct Thyroxine 2.29 ng/dL (0.78-2.19)
[2023-11-10 13:03] LABS: Thyroid Stimulating Hormone 0.591 uIU/mL (0.47-4.68)
== END ==
PROVIDERS: PCP Nurse Practitioner; Referring Provider Internal Medicine Cardiovascular Disease; Visit Provider Internal Medicine Cardiovascular Disease
DX: I48.0 Paroxysmal atrial fibrillation (principal)
CPT/HCPCS: 36415; 80053; 84439; 84443

== ENCOUNTER → 2023-11-12 10:13 | Outpatient (CLI) | payer MEDICARE, OTHER, SELFPAY ==
[2023-11-12 11:59] LABS: BUN Creatinine Ratio 21.6 (6-22); Blood Urea Nitrogen 27 mg/dL (7-17); Calcium 9.9 mg/dL (8.4-10.2); Carbon Dioxide 28 mmol/L (22-32); Chloride 96 mmol/L (98-107); Estimated Glomerular Filt Rate 43 mL/min (>60); Glucose 97 mg/dL (80-110); HEMOLYSIS < 15 (0-50); Sodium 133 mmol/L (137-145)
[2023-11-12 12:00] LABS: Potassium 5.5 mmol/L (3.4-5.1)
== END ==
PROVIDERS: PCP Nurse Practitioner; Referring Provider Internal Medicine Cardiovascular Disease; Visit Provider Internal Medicine Cardiovascular Disease
DX: E78.5 Hyperlipidemia, unspecified (principal)
CPT/HCPCS: 36415; 80048

== ENCOUNTER → 2023-11-19 09:03 | Outpatient (CLI) | payer MEDICARE, OTHER, SELFPAY ==
[2023-11-19 09:48] LABS: BUN Creatinine Ratio 21.2 (6-22); Blood Urea Nitrogen 21 mg/dL (7-17); Calcium 9.3 mg/dL (8.4-10.2); Carbon Dioxide 22 mmol/L (22-32); Chloride 98 mmol/L (98-107); Estimated Glomerular Filt Rate 57 mL/min (>60); Glucose 98 mg/dL (80-110); Potassium 4.6 mmol/L (3.4-5.1); Sodium 130 mmol/L (137-145)
[2023-11-19 09:49] LABS: HEMOLYSIS 65 (0-50)
== END ==
PROVIDERS: PCP Nurse Practitioner; Referring Provider Internal Medicine Cardiovascular Disease; Visit Provider Internal Medicine Cardiovascular Disease
DX: E87.5 Hyperkalemia (principal)
CPT/HCPCS: 36415; 80048

== ENCOUNTER → 2023-12-04 08:31 | Outpatient (CLI) | payer MEDICARE, OTHER, SELFPAY ==
[2023-12-04 09:44] LABS: BUN Creatinine Ratio 14.7 (6-22); Blood Urea Nitrogen 15 mg/dL (7-17); Calcium 9.6 mg/dL (8.4-10.2); Carbon Dioxide 32 mmol/L (22-32); Chloride 99 mmol/L (98-107); Estimated Glomerular Filt Rate 55 mL/min (>60); Glucose 95 mg/dL (80-110); HEMOLYSIS < 15 (0-50); Potassium 4.5 mmol/L (3.4-5.1); Sodium 135 mmol/L (137-145)
[2023-12-06 19:07] LABS: Osmolality, Serum 283 mOsmol/kg (280-301)
== END ==
LOC: LAB 08:37
PROVIDERS: PCP Nurse Practitioner; Referring Provider Internal Medicine Cardiovascular Disease; Visit Provider Internal Medicine Cardiovascular Disease
DX: R07.89 Other chest pain (principal); I10 Essential (primary) hypertension
CPT/HCPCS: 36415; 80048; 83930

== ENCOUNTER → 2024-01-07 12:04 | Outpatient (CLI) | payer MEDICARE, OTHER, SELFPAY ==
[2024-01-07 13:37] LABS: Free T3, Triiodothyronine Free 2.49 pg/mL (2.77-5.27)
[2024-01-07 13:51] LABS: Thyroid Stimulating Hormone 0.852 uIU/mL (0.47-4.68)
== END ==
PROVIDERS: PCP Nurse Practitioner; Referring Provider Nurse Practitioner; Visit Provider Nurse Practitioner
DX: E03.9 Hypothyroidism, unspecified (principal)
CPT/HCPCS: 36415; 84439; 84443; 84481

== ENCOUNTER 2024-02-09 09:16 | Outpatient (RCR) | payer MEDICARE, OTHER, SELFPAY ==
--- NOTE | 2024-02-09 10:51 | OT.OP.EVAL ---
Visit Care Team Role Provider Type YENNY Faith Family Provider Advanced Assembly Loader Primary Care Provider Specialty: Family Practice Address: [address] [place] [address], [address] Email: [email or web address] Fransisco Arizmendi MD Attending Provider Non-Staff Referring Provider Specialty: Neurology Address: [address] [place], [place] [address], [place], [address] Email: Occupational Therapy Initial Evaluation OT Outpatient Adult Evaluation Start: 02/09/24 10:27 Freq: Status: Active Protocol: Document 02/09/24 10:28 AMS (Rec: 02/09/24 10:51 AMS [id number]) General Information - Adult Visit Number 10/13 Insurance Information Medicare Visit Start Time 09:45 Visit Stop Time 10:20 Treatment Setting Outpatient Care Note Type Initial Evaluation Identification Confirmed Yes Identification Confirmed By Self Assessment/Plan Treatment Assessment Ekaterina is 84 years-old and R handed; she was referred to OT by her neurologist, Fransisco Luo MD d/t essential tremors. Medical history is significant for arthritis, blood pressure, dizziness, heart disease, kidney disease, and thyroid disorder. Ekaterina provided clinician w/ copy of updated medication list: Apixaban (Eliquis); Benzonatate; Bimatoprost ( Lumigan); Fexofenadine ( Hermila allergy); Hydrochlorothiazide; Hydrocortisone; Levothyroxine; Lisinopril; Propranolol; Timolol. Hand/Wrist Pain Assessment Grid was completed w/ indication of 7 out of 10 on the pain scale relative to L thumb. QuickDASH UE Outcome Measure Score = 50.00. Ekaterina reported that she has a set of weighted utensils; she uses a esparza to bake pancakes versus having to flip them on stovetop. She also has a piece of AE that helps her open jars; when unsuccessful, Ekaterina will seek out assist from neighbor w/ opening jars. She reports activity modification, including slowing down rate of task completion ( particularly when cutting food items) and taking deep breaths. Discussed AE cutting boards, AE rocker knife, and AE universal cuff. Discussed increasing width of items; provided w/ sample of foam tube for use w/ writing and/or other activities as deemed appropriate. Provided w/ handout re: energy conservation. Briefly discussed proximal UE stabilization to support FM/ manipulation of objects in hands. Also briefly reviewed use of wrist weights and/or potential use of weighted glove(s) to support FM/ manipulation of objects in hands. No further OT services are needed at this time; recommend d/c from outpatient OT. Patient Recommendations Discharge from Occupational Therapy
--- NOTE | 2024-02-09 10:57 | OT.OP.DC ---
Visit Care Team Role Provider Type YENNY Faith Family Provider Advanced Professor Of Languages Primary Care Provider Address: [address] [place] [address], [address] Email: [email or web address] Fransisco Arizmendi MD Attending Provider Non-Staff Referring Provider Address: [address] [place] [address], [address] Email: OT Outpatient OT Outpatient Adult Evaluation Start: 02/09/24 10:27 Freq: Status: Active Protocol: Document 02/09/24 10:28 AMS (Rec: 02/09/24 10:51 AMS [id number]) General Information - Adult Visit Information Visit Number 10/13 Insurance Information Medicare Session Time Visit Start Time 09:45 Visit Stop Time 10:20 Setting Treatment Setting Outpatient Care Visit Type Note Type Initial Evaluation Identification Identification Confirmed Yes Identification Confirmed By Self Assessment/Plan Assessment Treatment Assessment Ekaterina is 84 years-old and R handed; she was referred to OT by her neurologist, Fransisco Luo MD d/t essential tremors. Medical history is significant for arthritis, blood pressure, dizziness, heart disease, kidney disease, and thyroid disorder. Ekaterina provided clinician w/ copy of updated medication list: Apixaban (Eliquis); Benzonatate; Bimatoprost ( Lumigan); Fexofenadine ( Hermila allergy); Hydrochlorothiazide; Hydrocortisone; Levothyroxine; Lisinopril; Propranolol; Timolol. Hand/Wrist Pain Assessment Grid was completed w/ indication of 7 out of 10 on the pain scale relative to L thumb. QuickDASH UE Outcome Measure Score = 50.00. Ekaterina reported that she has a set of weighted utensils; she uses a esparza to bake pancakes versus having to flip them on stovetop. She also has a piece of AE that helps her open jars; when unsuccessful, Ekaterina will seek out assist from neighbor w/ opening jars. She reports activity modification, including slowing down rate of task completion ( particularly when cutting food items) and taking deep breaths. Discussed AE cutting boards, AE rocker knife, and AE universal cuff. Discussed increasing width of items; provided w/ sample of foam tube for use w/ writing and/or other activities as deemed appropriate. Provided w/ handout re: energy conservation. Briefly discussed proximal UE stabilization to support FM/ manipulation of objects in hands. Also briefly reviewed use of wrist weights and/or potential use of weighted glove(s) to support FM/ manipulation of objects in hands. No further OT services are needed at this time; recommend d/c from outpatient OT. Plan Patient Recommendations Discharge from Occupational Therapy Functional Wrist/Hand Scan Hand Side Sensory Assessment Sensory Profile2
== END 2024-02-10 10:43 ==
LOC: OT 09:16
PROVIDERS: Family Provider Nurse Practitioner; PCP Nurse Practitioner; Referring Provider Psychiatry & Neurology Neurology; Visit Provider Psychiatry & Neurology Neurology
DX: G25.0 Essential tremor (principal)
CPT/HCPCS: 97165

== ENCOUNTER → 2024-02-29 10:49 | Outpatient (CLI) | payer MEDICARE, OTHER, SELFPAY ==
[2024-02-29 12:34] LABS: Blood Urea Nitrogen 19 mg/dL (7-17); Calcium 9.5 mg/dL (8.4-10.2); Carbon Dioxide 31 mmol/L (22-32); Chloride 96 mmol/L (98-107); Estimated Glomerular Filt Rate 56 mL/min (>60); Glucose 105 mg/dL (80-110); HEMOLYSIS < 15 (0-50); Potassium 4.4 mmol/L (3.4-5.1); Sodium 134 mmol/L (137-145)
== END ==
LOC: LAB 10:50
PROVIDERS: Family Provider Nurse Practitioner; PCP Nurse Practitioner; Referring Provider Internal Medicine Cardiovascular Disease; Visit Provider Internal Medicine Cardiovascular Disease
DX: I48.0 Paroxysmal atrial fibrillation (principal)
CPT/HCPCS: 36415; 80048

== ENCOUNTER → 2024-04-08 09:17 | Outpatient (CLI) | payer MEDICARE, OTHER, SELFPAY ==
[2024-04-08 10:31] LABS: Thyroid Stimulating Hormone 0.806 uIU/mL (0.47-4.68)
== END ==
PROVIDERS: Family Provider Nurse Practitioner; PCP Nurse Practitioner; Referring Provider Nurse Practitioner; Visit Provider Nurse Practitioner
DX: E03.9 Hypothyroidism, unspecified (principal)
CPT/HCPCS: 36415; 84443

== ENCOUNTER → 2024-07-21 09:14 | Outpatient (CLI) | payer MEDICARE, OTHER, SELFPAY ==
[2024-07-21 10:32] LABS: Add Manual Diff / Slide Review NO; Basophils Absolute Auto 200 /uL (0-100); Basophils Percent Auto 3.3 % (0-2); Eosinophils Absolute Auto 100 /uL (0-450); Eosinophils Percent Auto 1.8 % (2-4); Hematocrit 35.3 % (36-46); Hemoglobin 12.6 g/dL (12.0-16.0); Lymphocytes Absolute Auto 1300 /uL (1100-4500); Mean Corpuscular HGB Conc 35.7 % (30-36); Mean Corpuscular Hemoglobin 35.3 PG (26-34); Mean Corpuscular Volume 98.9 fL (80-100); Monocytes Absolute Auto 200 /uL (0-900); Monocytes Percent Auto 4.9 % (3-14); Neutrophils Absolute Auto 2900 /uL (1500-7000); Platelet Count 280 X10^3/uL (150-400); Red Blood Cell Count 3.57 X10^6/uL (4.0-5.2); White Blood Cell Count 4.6 X10^3/uL (4.5-11.0)
[2024-07-21 11:08] LABS: Alanine Aminotransferase 21 IU/L (<35); Albumin 4.1 g/dL (3.5-5.0); Alkaline Phosphatase 59 U/L (38-126); Aspartate Aminotransferase 32 IU/L (14-36); BUN Creatinine Ratio 12.5 (6-22); Bilirubin Total 1.5 mg/dL (0.2-1.3); Blood Urea Nitrogen 11 mg/dL (7-17); Calcium 9.8 mg/dL (8.4-10.2); Carbon Dioxide 31 mmol/L (22-32); Chloride 99 mmol/L (98-107); Cholesterol 159 mg/dL (140-199); Estimated Glomerular Filt Rate > 60 mL/min (>60); Globulin 2.1 g/dL (1.7-4.1); Glucose 93 mg/dL (80-110); HDL Cholesterol 68 mg/dL (40-60); HEMOLYSIS < 15 (0-50); LDL Cholesterol Calculated 77 mg/dL (<100); Potassium 4.2 mmol/L (3.4-5.1); Sodium 137 mmol/L (137-145); Total Protein 6.2 g/dL (6.3-8.2); Triglycerides 68 mg/dL (35-150)
[2024-07-21 11:15] LABS: Creatinine Urine Random 86.17 mg/dL
[2024-07-21 11:20] LABS: Microalbumin Urine Random 10.2 mg/dL (0-1.6)
[2024-07-21 11:36] LABS: Thyroid Stimulating Hormone 0.333 uIU/mL (0.47-4.68)
== END ==
LOC: LAB 09:15
PROVIDERS: Family Provider Nurse Practitioner; PCP Nurse Practitioner; Referring Provider Nurse Practitioner; Visit Provider Nurse Practitioner
DX: E83.52 Hypercalcemia (principal); E87.1 Hypo-osmolality and hyponatremia; I48.91 Unspecified atrial fibrillation; N18.9 Chronic kidney disease, unspecified; G47.00 Insomnia, unspecified; R73.03 Prediabetes; E78.5 Hyperlipidemia, unspecified; E03.9 Hypothyroidism, unspecified; Z79.899 Other long term (current) drug therapy; I12.9 Hypertensive chronic kidney disease with stage 1 through stage 4 chronic kidney disease, or unspecified chronic kidney disease
CPT/HCPCS: 36415; 80053; 80061; 82043; 82570; 83036; 84443; 85025

== ENCOUNTER → 2024-08-25 09:34 | Outpatient (CLI) | payer MEDICARE, OTHER, SELFPAY ==
[2024-08-25 10:57] LABS: Creatinine Urine Random 51.88 mg/dL
[2024-08-25 11:02] LABS: Microalbumin Urine Random 4.4 mg/dL (0-1.6)
[2024-08-25 11:13] LABS: TSH w/ Reflex to FT4 2.54 uIU/mL (0.47-4.68)
== END ==
PROVIDERS: Family Provider Nurse Practitioner; PCP Family Medicine; Referring Provider Family Medicine; Visit Provider Family Medicine
DX: I48.91 Unspecified atrial fibrillation (principal); I12.9 Hypertensive chronic kidney disease with stage 1 through stage 4 chronic kidney disease, or unspecified chronic kidney disease; N18.9 Chronic kidney disease, unspecified; R73.9 Hyperglycemia, unspecified; E78.5 Hyperlipidemia, unspecified; E03.9 Hypothyroidism, unspecified; R80.9 Proteinuria, unspecified
CPT/HCPCS: 36415; 82043; 82570; 84443

== ENCOUNTER → 2025-01-26 09:53 | Outpatient (CLI) | payer MEDICARE, OTHER, SELFPAY ==
[2025-01-26 10:20] LABS: Basophils Absolute Auto 100 /uL (0-100); Basophils Percent Auto 3.7 % (0-2); Eosinophils Absolute Auto 100 /uL (0-450); Eosinophils Percent Auto 2.3 % (2-4); Hematocrit 35.3 % (36-46); Hemoglobin 12.4 g/dL (12.0-16.0); Lymphocytes Absolute Auto 1000 /uL (1100-4500); Lymphocytes Percent Auto 29.6 % (25-40); Mean Corpuscular HGB Conc 35.3 % (30-36); Mean Corpuscular Hemoglobin 34.9 PG (26-34); Mean Corpuscular Volume 99.1 fL (80-100); Monocytes Absolute Auto 300 /uL (0-900); Neutrophils Absolute Auto 1900 /uL (1500-7000); Neutrophils Percent Auto 56.4 % (50-75); Platelet Count 230 X10^3/uL (150-400); Red Blood Cell Count 3.56 X10^6/uL (4.0-5.2); Red Cell Distribution Width 13.9 % (11.6-14.8); White Blood Cell Count 3.3 X10^3/uL (4.5-11.0)
[2025-01-26 10:21] LABS: Add Manual Diff / Slide Review SLIDE REVIEW
[2025-01-26 10:27] LABS: Hemoglobin A1C% w Est Avg Glu 4.8 % (4.0-6.0)
[2025-01-26 10:41] LABS: Alanine Aminotransferase 32 IU/L (<35); Albumin 4.2 g/dL (3.5-5.0); Alkaline Phosphatase 59 U/L (38-126); Aspartate Aminotransferase 40 IU/L (14-36); BUN Creatinine Ratio 22.7 (6-22); Bilirubin Total 1.6 mg/dL (0.2-1.3); Blood Urea Nitrogen 20 mg/dL (7-17); Calcium 9.5 mg/dL (8.4-10.2); Carbon Dioxide 30 mmol/L (22-32); Chloride 95 mmol/L (98-107); Estimated Glomerular Filt Rate > 60 mL/min (>60); Globulin 2.1 g/dL (1.7-4.1); Glucose 93 mg/dL (70-99); HEMOLYSIS < 15 (0-50); Potassium 4.7 mmol/L (3.4-5.1); Sodium 132 mmol/L (137-145); Total Protein 6.3 g/dL (6.3-8.2)
[2025-01-26 11:06] LABS: Appearance Urine UA CLEAR; Bilirubin Urine UA NEGATIVE (NEGATIVE); Color Urine UA YELLOW; Glucose Urine UA NEGATIVE (Negative); Ketones Urine UA NEGATIVE (NEGATIVE); Leukocyte Esterase Urine UA NEGATIVE (NEGATIVE); Nitrite Urine UA NEGATIVE (Negative); Occult Blood Urine UA NEGATIVE (Negative); Protein Urine UA NEGATIVE (Negative); Urobilinogen Urine UA 0.2 E.U./dL (0.2)
[2025-01-26 11:09] LABS: TSH w/ Reflex to FT4 2.62 uIU/mL (0.47-4.68)
[2025-01-26 11:11] LABS: pH Urine UA 6.5 (4.5-8.0)
[2025-01-26 11:13] LABS: Bacteria Urine None Seen; RBC Urine None Seen (0-5/HPF); Squamous Epithelial Cell Urine None Seen (0-5/HPF); Urine Volume 10mL (spun); WBC Urine None Seen (0-5/HPF)
[2025-01-26 11:14] LABS: Culture Indicated Urine Cult Not Indicated
[2025-01-26 11:44] LABS: RBC Morphology Normal Morphology
== END ==
PROVIDERS: Family Provider Nurse Practitioner; PCP Family Medicine; Referring Provider Family Medicine; Visit Provider Family Medicine
DX: R53.83 Other fatigue (principal); R73.9 Hyperglycemia, unspecified; I10 Essential (primary) hypertension; E03.9 Hypothyroidism, unspecified; F51.04 Psychophysiologic insomnia; E87.1 Hypo-osmolality and hyponatremia; E83.52 Hypercalcemia
CPT/HCPCS: 36415; 80053; 81001; 83036; 84443; 85025

== ENCOUNTER → 2025-03-08 10:01 | Outpatient (CLI) | payer MEDICARE, OTHER, SELFPAY ==
[2025-03-08 10:37] LABS: Add Manual Diff / Slide Review NO; Basophils Absolute Auto 200 /uL (0-100); Basophils Percent Auto 4.4 % (0-2); Eosinophils Absolute Auto 100 /uL (0-450); Eosinophils Percent Auto 1.8 % (2-4); Hematocrit 36.5 % (36-46); Hemoglobin 12.7 g/dL (12.0-16.0); Lymphocytes Absolute Auto 1200 /uL (1100-4500); Lymphocytes Percent Auto 33.4 % (25-40); Mean Corpuscular HGB Conc 34.7 % (30-36); Mean Corpuscular Hemoglobin 34.1 PG (26-34); Mean Corpuscular Volume 98.4 fL (80-100); Monocytes Absolute Auto 200 /uL (0-900); Monocytes Percent Auto 5.9 % (3-14); Neutrophils Absolute Auto 2000 /uL (1500-7000); Neutrophils Percent Auto 54.5 % (50-75); Platelet Count 255 X10^3/uL (150-400); Red Blood Cell Count 3.71 X10^6/uL (4.0-5.2); Red Cell Distribution Width 14.1 % (11.6-14.8); White Blood Cell Count 3.7 X10^3/uL (4.5-11.0)
[2025-03-08 17:16] LABS: Alanine Aminotransferase 26 IU/L (<35); Albumin 4.4 g/dL (3.5-5.0); Alkaline Phosphatase 60 U/L (38-126); Aspartate Aminotransferase 37 IU/L (14-36); BUN Creatinine Ratio 19.3 (6-22); Bilirubin Total 1.7 mg/dL (0.2-1.3); Blood Urea Nitrogen 17 mg/dL (7-17); Carbon Dioxide 29 mmol/L (22-32); Chloride 100 mmol/L (98-107); Estimated Glomerular Filt Rate > 60 mL/min (>60); Globulin 2.2 g/dL (1.7-4.1); Glucose 99 mg/dL (70-99); HEMOLYSIS < 15 (0-50); Potassium 4.8 mmol/L (3.4-5.1); Sodium 137 mmol/L (137-145); Total Protein 6.6 g/dL (6.3-8.2)
[2025-03-08 17:24] LABS: BUN Creatinine Ratio 19.5 (6-22); Blood Urea Nitrogen 17 mg/dL (7-17); Calcium 10.1 mg/dL (8.4-10.2); Carbon Dioxide 29 mmol/L (22-32); Chloride 99 mmol/L (98-107); Estimated Glomerular Filt Rate > 60 mL/min (>60); Glucose 100 mg/dL (70-99); HEMOLYSIS < 15 (0-50); Potassium 4.8 mmol/L (3.4-5.1); Sodium 136 mmol/L (137-145)
[2025-03-09 15:08] LABS: Osmolality Urine 325 mOsmol/kg (.); Osmolality, Serum 284 mOsmol/kg (280-301)
== END ==
PROVIDERS: Family Provider Nurse Practitioner; PCP Family Medicine; Referring Provider Internal Medicine Cardiovascular Disease; Visit Provider Internal Medicine Cardiovascular Disease
DX: E87.1 Hypo-osmolality and hyponatremia (principal); I10 Essential (primary) hypertension; I48.91 Unspecified atrial fibrillation
CPT/HCPCS: 36415; 80048; 80053; 83930; 83935; 85025

== ENCOUNTER → 2025-03-13 11:59 | Outpatient (CLI) | payer MEDICARE, OTHER, SELFPAY ==
--- NOTE | 2025-03-13 12:05 | DI.ECHO.S_ITS ---
[facility]+ [facility] : : [address] : : [place] : : [address] : : Phone: [phone] Echocardiogram Report + + :Name: CATRACHITA FIGUEROA Study Date: 03/13/2025 Height: 62 in : :Hospital ReadingLocation: Weight: 128 lb : : Gender: Female BSA: 1.6 m2 : :: 1940 Age: 85 yrs BP: 113/53 mmHg: :Reason For Study: FATIGUE : :Ordering Physician: CESAR, : :BLAS Performed By: Danielle Conner : :Referring: BLAS GUERRERO : + + Interpretation Summary The patient was in sinus bradycardia with heart rates between 52-55 bpm during the exam. The left ventricle is normal in size and wall thickness. Normal LVEF. Left ventricular ejection fraction is estimated to be 55 +/- 5%. There has been no significant change in LVEF since the previous exam. The right ventricle is normal in size and function. The left atrium is severely dilated. The left atrium has mildly increased in size since the prior echo exam. There is moderate mitral regurgitation. Previously mild to moderate MR. There is mild to moderate tricuspid regurgitation. Previously mild TR. The right ventricular systolic pressure is estimated to be at least 33 mmHg based on an estimated right atrial pressure of 8 mm Hg. Previously 28 mmHg. There is mild luminal irregularity and echogenicity in the abdominal aorta, suggestive of aortic atherosclerotic disease. Procedure: A two-dimensional transthoracic echocardiogram with color flow and Doppler was performed. The study quality was technically adequate. Comparison is made with the echocardiogram of 10/19/2023. The patient was in sinus bradycardia with heart rates between 52-55 bpm during the exam. Left Ventricle: The left ventricle is normal in size and wall thickness. There is no thrombus. Left ventricular ejection fraction is estimated to be 55 +/- 5%. There has been no significant change since the previous exam. There are no focal wall motion abnormalities. MV E/A: 1.4 Med Peak E' Van: 7.5 cm/sec E/E' med: 13.1. Right Ventricle: The right ventricle is normal in size and function. Atria: The left atrium is severely dilated. The left atrium has mildly increased in size since the prior echo exam. The right atrium is mildly dilated. There is no Doppler evidence for an interatrial shunt. Mitral Valve: The mitral valve leaflets appear borderline thickened, but open well. There is mild mitral annular calcification. There is moderate mitral regurgitation. Aortic Valve: The aortic valve is trileaflet. The aortic valve opens well. There is no aortic valve stenosis. No aortic regurgitation is present. Tricuspid Valve: The tricuspid valve leaflets are thin and pliable. There is mild to moderate tricuspid regurgitation. The right ventricular systolic pressure is estimated to be at least 33 mmHg based on an estimated right atrial pressure of 8 mm Hg. Pulmonic Valve: The pulmonic valve leaflets are thin and pliable; valve motion is normal. There is no pulmonic valvular regurgitation. Great Vessels: The aortic root is normal size. The dimensions of the ascending aorta are normal. There is mild luminal irregularity and echogenicity in the abdominal aorta, suggestive of aortic atherosclerotic disease. The IVC is dilated (diameter is greater than 2.1 cm) yet it collapses greater than 50% with a sniff. This suggests a right atrial pressure of 8 mm Hg. Pericardium/ Pleura There is no pericardial effusion. There is no pleural effusion. MMode/2D Measurements & Calculations LVIDd: 4.5 cm LVOT diam: 2.0 cm LVIDs: 3.1 cm Ao root diam: 2.9 cm FS: 31.7 % asc Aorta Diam: 2.5 cm EPSS: 0.54 cm Ao Arch Diam (Prox Trans): 2.4 cm IVSd: 0.60 cm LVPWd: 0.76 cm LV perry. diameter/BSA (cm/m^2): 2.9 LV sys. diameter/BSA (cm/m^2): 2.0 LA A2 area: 27.8 cm2 RA long axis: 5.9 cm LA A4 area: 22.8 cm2 RA area: 19.6 cm2 LA length (vol): 6.1 cm RA vol: 55.0 ml LA vol: 87.7 ml RA : 34.8 ml/m2 LA vol index: 55.4 ml/m2 IVC diam: 2.1 cm RVD1 (basal): 3.3 cm RVD2 (mid): 3.2 cm TAPSE: 1.9 cm Doppler Measurements & Calculations Ao V2 max: 155.3 cm/sec LVOT Max Van: 80.0 cm/sec Ao V2 mean: 100.6 cm/sec LV V1 max P.6 mmHg Ao max P.6 mmHg LV V1 VTI: 20.0 cm Ao mean P.6 mmHg KEVIN(I,D): 1.7 cm2 Ao V2 VTI: 35.6 cm KEVIN(V,D): 1.6 cm2 sev ratio: 0.56 KEVIN indexed to BSA (cm^2/m^2): 1.1 MV E max van: 98.7 cm/sec TR max van: 251.4 cm/sec MV A max van: 69.1 cm/sec TR max P.3 mmHg MV E/A: 1.4 PA V2 max: 95.9 cm/sec Med Peak E' Van: 7.5 cm/sec PA V2 mean: 62.6 cm/sec E/E' med: 13.1 PA mean P.8 mmHg Lat Peak E' Van: 10.0 cm/sec PA pr(Accel): 5.8 mmHg E/E' lat: 9.9 E/e' average: 11.5 MV dec time: 0.20 sec SV(LVOT): 60.7 ml Reading Physician:04:06 PM
== END ==
PROVIDERS: Family Provider Nurse Practitioner; PCP Family Medicine; Referring Provider Internal Medicine Cardiovascular Disease; Visit Provider Internal Medicine Cardiovascular Disease
DX: I08.1 Rheumatic disorders of both mitral and tricuspid valves (principal); R00.1 Bradycardia, unspecified; I48.0 Paroxysmal atrial fibrillation; R53.83 Other fatigue
CPT/HCPCS: 93306